=== PATIENT | female | born 2000 | race Native Hawaiian/Other Pacific Islander ===

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

== ENCOUNTER 2021-10-07 00:20 | Emergency (ER) | payer OTHER ==
[2021-10-07 03:04] LABS: BILIRUBIN,URINE NEGATIVE (NEGATIVE); GLUCOSE, URINE (UA) NEGATIVE (NEGATIVE); KETONES,URINE (UA) NEGATIVE (NEGATIVE); LEUKOCYTE ESTERASE, URINE NEGATIVE (NEGATIVE); NITRITE,URINE NEGATIVE (NEGATIVE); OCCULT BLOOD,URINE LARGE (NEGATIVE); PROTEIN,URINE >=300 mg/dL (NEGATIVE); UROBILINOGEN,URINE 0.2 (NORMAL) E.U./dL (NORMAL)
[2021-10-07 03:07] LABS: CLARITY,URINE HAZY (CLEAR); HCG UR QUAL NEGATIVE
[2021-10-07 03:10] LABS: BACTERIA,URINE Few /HPF (None Seen); RBC,URINE TNTC /HPF (0-5); SQUAMOUS EPITHELIAL CELL,UR FEW Squamous (<= Few); WBC,URINE 0-3 /HPF (0-5)
[2021-10-07 03:41] LABS: CORONAVIRUS 229E-RESP PCR NOT DETECTED; CORONAVIRUS HKU1-RESP PCR NOT DETECTED; CORONAVIRUS NL63-RESP PCR NOT DETECTED; CORONAVIRUS OC43-RESP PCR NOT DETECTED
[2021-10-07 03:42] LABS: HUMAN METAPNEUMOVIRUS NOT DETECTED; INFLUENZA A- RESP PCR PANEL NOT DETECTED; RHINOVIRUS/ENTEROVIRUS NOT DETECTED; SARS-CoV-2 -RESP PCR PANEL DETECTED
[2021-10-07 03:43] LABS: B. PARAPERTUSSIS- RESP PCR PAN NOT DETECTED; B. PERTUSSIS- RESP PCR PANEL NOT DETECTED; C. PNEUMONIAE- RESP PCR PANEL NOT DETECTED; INFLUENZA B - RESP PCR PANEL NOT DETECTED; M. PNEUMONIAE- RESP PCR PANEL NOT DETECTED; PARAINFLUENZA VIRUS 1 NOT DETECTED; PARAINFLUENZA VIRUS 2 NOT DETECTED; PARAINFLUENZA VIRUS 3 NOT DETECTED; PARAINFLUENZA VIRUS 4 NOT DETECTED; RSV- RESP PCR PANEL NOT DETECTED
--- NOTE | 2021-10-07 03:55 | ED Physician Documentation ---
History of Present Illness - Stated complaint Stated Complaint: FEVER,H/A,SOA - Chief complaint Chief Complaint: General - History obtained from History obtained from: Patient - History of Present Illness Timing: Yesterday Improved by: no ameliorating factors Worsened by: no exacerbating factors - Additonal information Additional information: c/o nonproductive cough, sore throat, generalized headache, fatigue, nausea without vomiting, fever Tmax 102 (higher in ED). symptoms started yesterday. She is COVID vaccinated without booster. taking ibuprofen with transient improvement. Review of Systems Constitutional: reports: Fever, Chills, Myalgias, Fatigue, Sweats Throat: reports: Sore throat Cardiac: reports: Reviewed and negative Respiratory: reports: Cough. denies: Dyspnea GI: reports: Nausea. denies: Abdominal Pain, Vomiting Skin: denies: Rash Neurologic: reports: Headache PD PAST MEDICAL HISTORY - Past Medical History Past Medical History: No - Past Surgical History Past Surgical History: No - Present Medications Home Medications: Ambulatory Orders Medication Instructions Recorded Confirmed No Known Home Medications 08/22/20 10/07/21 - Allergies Allergies/Adverse Reactions: Allergies Allergy/AdvReac Type Severity Reaction Status Date / Time No Known Drug Allergies Allergy Verified 10/07/21 02:38 - Social History Does the pt smoke?: No Smoking Status: Never smoker Does the pt drink ETOH?: No Does the pt have substance abuse?: No - Immunizations Immunizations are current?: Yes - POLST Patient has POLST: No PD ED PE NORMAL - Vitals Vital signs reviewed: Yes - General General: Alert and oriented X 3, No acute distress, Well developed/nourished - HEENT HEENT: Moist mucous membranes - Neck Neck: Supple, no meningeal sign - Cardiac Cardiac: RRR, No murmur - Respiratory Respiratory: No respiratory distress, Clear bilaterally Results - Vitals Vitals: Oxygen O2 Source Room air - Labs Labs: Laboratory Tests 10/07/21 10/07/21 10/07/21 02:45 02:45 02:45 Urine Color YELLOW Urine Clarity HAZY Urine pH 6.0 Ur Specific [place] 1.020 Urine Protein >=300 H Urine Glucose (UA) NEGATIVE Urine Ketones NEGATIVE Urine Occult Blood LARGE H Urine Nitrite NEGATIVE Urine Bilirubin NEGATIVE Urine Urobilinogen 0.2 (NORMAL) Ur Leukocyte Esterase NEGATIVE Urine RBC TNTC H Urine WBC 0-3 Ur Squamous Epith Cells FEW Squamous Urine Bacteria Few Ur Microscopic Review INDICATED Urine Culture Comments NOT INDICATED Urine HCG, Qual NEGATIVE Nasal Adenovirus (PCR) NOT DETECTED Nasal B. parapertussis DNA (PCR) NOT DETECTED Nasal Coronavir 229E PCR NOT DETECTED Nasal Coronavir HKU1 PCR NOT DETECTED Nasal Coronavir NL63 PCR NOT DETECTED Nasal Coronavir OC43 PCR NOT DETECTED Nasal Enterovir/Rhinovir PCR NOT DETECTED Nasal Influenza B PCR NOT DETECTED Nasal Influenza A PCR NOT DETECTED Nasal Parainfluen 1 PCR NOT DETECTED Nasal Parainfluen 2 PCR NOT DETECTED Nasal Parainfluen 3 PCR NOT DETECTED Nasal Parainfluen 4 PCR NOT DETECTED Nasal RSV (PCR) NOT DETECTED Nasal B.pertussis DNA PCR NOT DETECTED Nasal C.pneumoniae (PCR) NOT DETECTED Pedro Human Metapneumo PCR NOT DETECTED Nasal M.pneumoniae (PCR) NOT DETECTED Nasal SARS-CoV-2 (PCR) DETECTED A PD MEDICAL DECISION MAKING - ED course Complexity details: reviewed results, re-evaluated patient, considered differential, d/w patient ED course: COVID positive on tonights respiratory PCR panel. She is given tylenol with imp rovement in fever and proportionate improvement in her tachycardia. She is in NAD with normal pulse ox on room air and lungs CTA bilaterally. She describes good PO tolerance and has moist mucous membranes; her tachycardia is likely in proportion to the fever and not a separate process (such as dehydration or sepsis). Departure - Departure Disposition: 01 Home, Self Care Clinical Impression: COVID-19 Condition: Good Instructions: ED Viral Syndrome Comments: YOU HAVE TESTED POSITIVE FOR COVID-19. This is the cause of your symptoms and fever. Follow the CDC guidelines regarding quarantine/isolation. https://www.cdc.gov/coronavirus/2019-ncov/your-health/quarantine-isolation.html Discharge Date/Time: 10/07/21 04:25
[2021-10-07] MEDS ORDERED: ACETAMINOPHEN 325 MG TABLET PO STA (04:06)
[2021-10-07 04:40] VITALS: BP 109/66
== END 2021-10-07 04:25 | disposition home or self-care (01) ==
LOC: ED 00:20
DX: U07.1 COVID-19 (principal); R00.0 Tachycardia, unspecified; R51.9 Headache, unspecified; R11.0 Nausea
CPT/HCPCS: 0202U; 81001; 81025; 99282; 99283; A9270; 81003; 87086